=== PATIENT | female | born 1960 | race Caucasian/White ===

== ENCOUNTER 2017-07-04 07:22 | Day surgery (SDC) | payer OTHER ==
[2017-07-03 17:47] VITALS: BMI 28.1
[2017-07-04] MEDS ORDERED: MIDAZOLAM HCL 2 MG/2 ML SINGLE DOSE VIAL ONE ×2 (13:38)
[2017-07-04] MEDS ORDERED: LIDOCAINE HCL 1%, 10 MG/ML (20ML VIAL) ONE (13:43)
[2017-07-04] MEDS ORDERED: LIDOCAINE HCL 1%, 10 MG/ML (50 mL VIAL) IJ ONE ×2 (13:50)
[2017-07-04] MEDS ORDERED: ACETAMINOPHEN WITH CODEINE 300MG/30MG TABLET PO PRN (14:26)
--- NOTE | 2017-07-04 14:26 | OP ---
Operative Note - Note: Operative Date: 07/04/17 Pre-Operative Diagnosis: subcutaneous lesions left forearm Post-Operative Diagnosis: Same as Pre-op Surgeon: Michele Nassar Anesthesia: Local, MAC Specimens Removed: 2 1cm lesions Estimated Blood Loss (mls): 1 Operative Report Dictated: Yes
[2017-07-04] MEDS ORDERED: oxyCODONE HCL 5 MG TABLET PO PRN (14:32)
[2017-07-04] MEDS ORDERED: PROMETHAZINE HCL 25 MG/1 ML VIAL IVPB PRN (14:32)
[2017-07-04] MEDS ORDERED: ONDANSETRON 4 MG/2 ML VIAL IVPUSH PRN (14:32)
[2017-07-04] MEDS ORDERED: LACTATED RINGERS SOLUTION 1,000 ML IV SCH (14:45)
[2017-07-04 15:22] VITALS: TEMP 97.8
[2017-07-04 16:27] VITALS: BP 118/70; PULSE 89
--- NOTE | 2017-07-05 07:10 | OP ---
DATE OF OPERATION: 07/04/2017 PREOPERATIVE DIAGNOSIS: Subcutaneous lesions in the left forearm . POSTOPERATIVE DIAGNOSIS: Subcutaneous lesions in the left forearm . PROCEDURE: Excision of subcutaneous masses, lesions in the left anterior forearm. SURGEON: Michele Yuen MD COMPLICATIONS: None. ANESTHESIA: Local with sedation. Patient tolerated the procedure well. INDICATION: This is a 57-year-old female who presents with 2 subcutaneous lesions, one near the antecubital fossa and one in the distal forearm and the anterior aspect of the ventral forearm. She expressed a desire to these removed. Risks and benefits discussed. Patient is reassured with regard to the potential of malignancy, but nonetheless she agreed to proceed with the excision. DESCRIPTION OF PROCEDURE: She was taken to the operating room, placed in supine position. After the administration of local anesthesia and sedation, an incision was made longitudinally over both lesions. The area was infiltrated with Marcaine. The dissection was performed in similar fashion using cautery to specify dissect the lesions. The antecubital fossa lesion appeared to be a lipoma, which was carefully from some of the antecubital veins without any bleeding. The distal forearm lesion was also more of a nodular lipomatous material which was dissected, carefully avoiding injury to the structures. Minimal bleeding was encountered in both places. The wound was closed with 3-0 Vicryl to approximate the subcutaneous tissues on both sides, and the skin was closed also with 4-0 Monocryl in a continuous subcuticular fashion. Dermabond was applied with sterile dressing, and the patient was sent to the recovery room awake, alert, in stable condition. She tolerated the procedure well. MICHELE YUEN M.D. [id number]
--- NOTE | 2017-07-10 17:00 | PATH ---
Surgical Pathology Report Patient Name: [facility]. Rec. #: [id number] /Age/Gender: 1960 (Age: 57) / F Account: [id number] Location: [facility] SURGICAL Taken: 07/04/2017 Received: 07/05/2017 Reported: 07/10/2017 Physicians: Michele Nassar M.D. 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 LEFT DISTAL FOREARM, MASS, EXCISION: FIBROMA OF TENDON SHEATH. B. PROXIMAL LEFT FOREARM, MASS, EXCISION: CONSISTENT FIBROLIPOMA. Electronically Signed Chong Odonnell M.D. Gross Description A. Received in formalin labeled "left distal forearm mass," is a 1.1 x 0.6 x 0.5 cm vickers-yellow soft tissue mass. The specimen is bisected and entirely submitted in one cassette. B. Received in formalin labeled "proximal forearm mass," is a 1.5 x 1.0 x 0.5 cm portion of yellow, lobulated adipose tissue. Sectioning reveals homogeneous yellow, smooth fat. No areas of hemorrhage or necrosis are identified. The specimen is bisected and entirely submitted in one cassette. 07/06/201707/06/2017
== END 2017-07-04 16:37 | disposition home or self-care (01) ==
LOC: JASU-SURG 07:22
PROVIDERS: ATTEND Surgery
PROC: 0JBH0ZZ Excision of Left Lower Arm Subcutaneous Tissue and Fascia, Open Approach (ICD-10-PCS; 2017-07-04)
PROC: 0JBH0ZZ Excision of Left Lower Arm Subcutaneous Tissue and Fascia, Open Approach (ICD-10-PCS; principal; 2017-07-04 13:00)
DX: D21.12 Benign neoplasm of connective and other soft tissue of left upper limb, including shoulder (principal)
CPT/HCPCS: 88304-TC; 94760